=== PATIENT | female | born 1990 | race Caucasian/White ===

== ENCOUNTER 2018-04-05 09:26 | Emergency (ER) | payer SELFPAY ==
[~2018-04-05] VITALS: Ht 161.3 cm; Wt 109.1 kg
[2018-04-05 10:02] LABS: IMMATURE GRANULOCYTES 0.3 % (0.0-5.0); MEAN CELL VOLUME 85.2 fL CALC (80.0-100.0); MEAN CORPUSCULAR HGB 29.3 pG CALC (26.0-32.0); MEAN CORPUSCULAR HGB CONC 34.4 g/L CALC (32.0-36.0); NEUT# 2.59 thou/uL (2.00-7.15); RED BLOOD COUNT 4.58 mill/uL (4.20-5.60); RED CELL DISTRI WIDTH 11.9 % (11.5-15.5)
[2018-04-05 10:07] LABS: HEMOGLOBIN 13.4 g/dl (12.0-16.0)
[2018-04-05 10:24] LABS: AMYLASE 41 u/l (30-110); ANION GAP 12 (6-22 (CALC)); BILIRUBIN, TOTAL 0.5 mg/dL (0.0-1.4); BUN 15 mg/dL (7-17); BUN/CREATININE RATIO 29 (12-20 (CALC)); CARBON DIOXIDE 24 mmol/l (22-30); CHLORIDE 110 mmol/l (95-108); CREATININE 0.5 mg/dL (0.5-1.0); GFR > 60 ML/MIN (>=60 (CALC)); GFR FOR AFR.AMER. > 60 ML/MIN (>=60 (CALC)); LIPASE 92 u/l (23-300); POTASSIUM 4.2 mmol/l (3.5-5.1); SGOT/AST 24 u/l (14-36)
[2018-04-05 10:25] LABS: ALBUMIN 4.2 g/dL (3.2-5.0); ALKALINE PHOSPHATASE 60 u/l (38-126); SODIUM 142 mmol/l (137-146); TOTAL PROTEIN 7.4 g/dL (6.3-8.2)
[2018-04-05] MEDS ORDERED: ZOFRAN4 MG/TAB PO (11:27)
[2018-04-05] MEDS ORDERED: ULTRAM50 M1 PO (11:27)
[2018-04-05 11:29] VITALS: BP 131/77
[2018-04-05 18:11] LABS: URINE BILIRUBIN - DIPSTICK NEGATIVE (NEGATIVE); URINE BLOOD DIPSTICK NEGATIVE (NEGATIVE); URINE CLARITY CLEAR; URINE COLOR YELLOW; URINE GLUCOSE - DIPSTICK NEGATIVE (NEGATIVE); URINE KETONE NEGATIVE (NEGATIVE); URINE LEUK ESTERASE NEGATIVE (NEGATIVE); URINE NITRITE - DIPSTICK NEGATIVE (Negative); URINE PROTEIN - DIPSTICK NEGATIVE (NEG-TRACE); URINE SPECIFIC GRAVITY 1.015; URINE UROBILINOGEN - DIPSTICK >=8.0 E.U./dL (0.2)
== END 2018-04-05 11:50 | disposition home or self-care (01) | DRG 446 ==
LOC: ED 09:26
PROVIDERS: Emergency Medicine
DX: K80.20 Calculus of gallbladder without cholecystitis without obstruction (principal); F17.210 Nicotine dependence, cigarettes, uncomplicated

== ENCOUNTER 2018-04-05 17:15 | Observation (INO) | payer SELFPAY ==
[~2018-04-05] VITALS: Ht 161.3 cm; Wt 100.7 kg
[~2018-04-05 17:15] MED LIST: ULTRAM50 M1 PO; ZOFRAN4 MG/TAB PO
--- NOTE | 2018-04-05 17:19 | NUR ---
PT TO ROOM WITH A STEADY GAIT.
[2018-04-05 18:00] LABS: HEMATOCRIT 41.5 % (37.0-47.0); HEMOGLOBIN 14.5 g/dl (12.0-16.0); IMMATURE GRANULOCYTES 0.1 % (0.0-5.0); MEAN CELL VOLUME 83.8 fL CALC (80.0-100.0); MEAN CORPUSCULAR HGB 29.3 pG CALC (26.0-32.0); MEAN CORPUSCULAR HGB CONC 34.9 g/L CALC (32.0-36.0); NEUT# 4.9 thou/uL (2.00-7.15); RED BLOOD COUNT 4.95 mill/uL (4.20-5.60); RED CELL DISTRI WIDTH 11.9 % (11.5-15.5)
--- NOTE | 2018-04-05 18:00 | NUR ---
attempted to call report. nurse will call back
--- NOTE | 2018-04-05 18:06 | NUR ---
I WAS TOLD BY [facility] THAT THEY ALREADY CONSULTED DR. WAN REGARDING THIS PATIENT.
--- NOTE | 2018-04-05 18:20 | NUR ---
attempted to call report.instructed to call back.
--- NOTE | 2018-04-05 18:23 | NUR ---
Admission Note Report Given to: randall tirado Transported by: x Wheelchair Stretcher Transported with: x Nurse Transporter x Patent IV [id number] Bead Maker
[2018-04-05 18:30] VITALS: BP 129/67
[2018-04-05 18:32] LABS: ALBUMIN 4.3 g/dL (3.2-5.0); ALKALINE PHOSPHATASE 87 u/l (38-126); ANION GAP 12 (6-22 (CALC)); BUN 11 mg/dL (7-17); BUN/CREATININE RATIO 22 (12-20 (CALC)); CARBON DIOXIDE 28 mmol/l (22-30); CHLORIDE 106 mmol/l (95-108); CREATININE 0.5 mg/dL (0.5-1.0); GFR > 60 ML/MIN (>=60 (CALC)); GFR FOR AFR.AMER. > 60 ML/MIN (>=60 (CALC)); LIPASE 92 u/l (23-300); POTASSIUM 4.2 mmol/l (3.5-5.1); SGOT/AST 592 u/l (14-36); SODIUM 141 mmol/l (137-146); TOTAL PROTEIN 7.3 g/dL (6.3-8.2)
--- NOTE | 2018-04-05 18:42 | NUR ---
PT ARRIVED ON UNIT VIA W/C, NO BEDSIDE REPORT GIVEN BUT REPORT RECEIVED FROM YA IN ED, PT ARRIVED ON UNIT @ 1830, SITTING UP BED WHEN SEEN @ 1837, ALERT AND ORIENTED, DENIED PAIN BUT C/O MILD HEARTBURN. NO ORDERS IN AT THIS TIME, SPOKE TO DARREN WHO REFERRED ME TO BAUDILIO, BAUDILIO STATED DR MILTON WAS CONTACTED AND DR WAN WAS ALSO CONSULTED, WILL CONTINUE TO MONITOR.
--- NOTE | 2018-04-05 18:59 | NUR ---
WRITTEN ORDERS JUST RECEIVED FROM ER, FAXED TO PHARMACY AT THIS TIME.
--- NOTE | 2018-04-05 19:35 | NUR ---
REPORT RECEIVED FROM DAY NURSE. PT IS SLEEPING SOUNDLY, DID NOT AWAKE TO MY ENTERING ROOM. NO S/S OF DISTRESS NOTED AT THIS TIME. CALL LIGHT IS AT BEDSIDE.
--- NOTE | 2018-04-05 20:30 | NUR ---
PT ASSESSMENT COMPLETED, LUNG SOUNDS ARE CLEAR/DIM LOWER LOBES BILAT,ABD SOFT NON-TENDER, DENIES PAIN/N/V/D AT THIS TIME. PT REPORTS SHE HAD DRY HEAVES NAUSEA EARLIER TODAY PRIOR TO ARRIVING TO HOSPITAL AND EXTREME PAIN, BUT NO FURTHER PAIN OR NAUSEA AFTER ARRIVING TO HOSPITAL. STATES THAT SHE FEELS LIKE SHE IS BETTER. NO EDEMA OR SKIN ISSUES NOTED. NEURO'S INTACT. PT DENIES ANY NEEDS, TV IS OFF AND LIGHTS ARE ON LOW. CALL LIGHT AT SIDE AND PT ENCOURAGED TO CALL IF ANY NEEDS ARISE.
--- NOTE | 2018-04-05 22:45 | NUR ---
PT CALLED TO SAY THAT SHE WANTS TO LEAVE. SHE IS FEELING "MUCH BETTER," AND SHE DOES NOT HAVE ANYBODY TO WATCH HER KIDS IN THE MORNING. SHE STATED THAT SHE IS TRYING TO GET AHOLD OF SOMEBODY TO COME PICK HER UP AND GIVE HER A RIDE. I EXPLAINED HER OPTIONS AND HOW LEAVING AMA WOULD WORK. EDUCATED HER ON DIET PLANS/WILL PRINT OUT EDUCATION MATERIALS FOR HER. SHE IS WAITING AT THIS TIME. FOR A RIDE. PT IS CALM, NO S/S OF DISTRESS, DENIES PAIN, JUST CONCERNED ABOUT HER KIDS.
--- NOTE | 2018-04-05 23:15 | NUR ---
PT BOYFRIEND IS HERE TO PICK PT UP FROM HOSPITAL. I HAVE DISCUSSED AMA PROCEDURES AND PROVIDED PT EDUCATION/RISKS AND PROVIDED EDUCATIONAL MATERIALS FOR HER INFORMATION. IV SITE REMOVED AND PT OFF THE UNIT FLOOR AT THIS TIME, SELF AMBULATED W/BOYFRIEND AT SIDE. LEFT IN GOOD CONDITION, NO PAIN/N/V WHILE ON THE UNIT. REPORTS FEELING, "MUCH BETTER," AND NEEDING TO GO HOME BECAUSE SHE DOES NOT HAVE ANYONE TO WATCH HER KIDS IN THE MORNING. AMA PAPER SIGNED/WITNESSED BY ME.
== END 2018-04-05 23:15 | disposition left against medical advice (07) | DRG 446 ==
LOC: ED 17:15 → ED-I 17:30 → ED 17:41 → MS2 17:42
PROVIDERS: Emergency Medicine; ADMIT Internal Medicine; ATTEND Internal Medicine
DX: K80.50 Calculus of bile duct without cholangitis or cholecystitis without obstruction (principal); F17.210 Nicotine dependence, cigarettes, uncomplicated
CPT/HCPCS: G0378; S0164

== ENCOUNTER 2018-08-26 01:54 | Emergency (ER) | payer SELFPAY ==
[~2018-08-26] VITALS: Ht 161.3 cm; Wt 118.6 kg
[2018-08-26 03:00] LABS: URINE BILIRUBIN - DIPSTICK NEGATIVE (NEGATIVE); URINE BLOOD DIPSTICK MODERATE (NEGATIVE); URINE COLOR YELLOW; URINE GLUCOSE - DIPSTICK NEGATIVE (NEGATIVE); URINE KETONE NEGATIVE (NEGATIVE); URINE LEUK ESTERASE NEGATIVE (NEGATIVE); URINE NITRITE - DIPSTICK NEGATIVE (Negative); URINE PH 7.5 (4.5-8.0); URINE PROTEIN - DIPSTICK NEGATIVE (NEG-TRACE); URINE UROBILINOGEN - DIPSTICK 0.2 E.U./dL (0.2)
[2018-08-26 03:02] LABS: HEMATOCRIT 39.2 % (37.0-47.0); HEMOGLOBIN 13.1 g/dl (12.0-16.0); IMMATURE GRANULOCYTES 0.3 % (0.0-5.0); MEAN CELL VOLUME 85.2 fL CALC (80.0-100.0); MEAN CORPUSCULAR HGB 28.5 pG CALC (26.0-32.0); MEAN CORPUSCULAR HGB CONC 33.4 g/L CALC (32.0-36.0); NEUT# 4.34 thou/uL (2.00-7.15); RED BLOOD COUNT 4.6 mill/uL (4.20-5.60); RED CELL DISTRI WIDTH 12.6 % (11.5-15.5)
[2018-08-26 03:12] LABS: ALBUMIN 4.2 g/dL (3.2-5.0); ALKALINE PHOSPHATASE 71 u/l (38-126); ANION GAP 13 (6-22 (CALC)); BILIRUBIN, TOTAL 0.5 mg/dL (0.0-1.4); BUN 7 mg/dL (7-17); BUN/CREATININE RATIO 13 (12-20 (CALC)); CARBON DIOXIDE 27 mmol/l (22-30); CHLORIDE 106 mmol/l (95-108); CREATININE 0.5 mg/dL (0.5-1.0); GFR > 60 ML/MIN (>=60 (CALC)); GFR FOR AFR.AMER. > 60 ML/MIN (>=60 (CALC)); LIPASE 113 u/l (23-300); POTASSIUM 3.8 mmol/l (3.5-5.1); SODIUM 142 mmol/l (137-146); TOTAL PROTEIN 7.1 g/dL (6.3-8.2)
[2018-08-26 03:13] LABS: AMYLASE < 30 u/l (30-110); SGOT/AST 19 u/l (14-36)
[2018-08-26 03:14] LABS: URINE MUCUS FEW hpf (NONE-FEW); URINE SQUAMOUS EPITHELIAL CELL FEW EPI/hpf (0-FEW)
[2018-08-26 06:30] VITALS: BP 99/61
[2018-08-26] MEDS ORDERED: PHENERGAN25 MG/TAB PO (06:30)
[2018-08-26] MEDS ORDERED: LORTAB 5/3255 MG PO (06:30)
== END 2018-08-26 06:45 | disposition home or self-care (01) | DRG 446 ==
LOC: ED 01:54
PROVIDERS: Family Medicine
DX: K80.20 Calculus of gallbladder without cholecystitis without obstruction (principal); R10.11 Right upper quadrant pain; R11.0 Nausea
CPT/HCPCS: Q9967